=== PATIENT | female | born 1975 | race African-American/Black ===

== ENCOUNTER 2016-07-04 18:09 | Emergency (ER) | payer BC ==
[~2016-07-04] VITALS: Ht 165.1 cm; Wt 95.3 kg
[~2016-07-04 18:09] MED LIST: ALPR0.254 PO; ALPR1TAB6 PO; ATEN25TA PO; CETI-17 PO; DILT120C97 PO; DULO30CA2 PO; LEVO100T PO; LEVO137T3 PO; LEVO500T38 PO; LEVO75TA PO; LISI1TAB3 PO; LISI1TAB5 PO; MOME13HF IH; MOME13HF2 IH; POLY17PO29 PO; PROAIR HFA8.5 GM IH; VENTOLIN HFA18 GM IH
[2016-07-04 18:47] VITALS: BP 147/75
[2016-07-04] MEDS ORDERED: HYDR-971 PO (18:55)
[2016-07-04] MEDS ORDERED: AMOX1TAB61 PO (18:55)
--- NOTE | 2016-07-04 18:55 | PHYS DOC ---
Past Medical History Past Medical History: Anxiety, Asthma, Hypertension, Hypothyroid Additional Past Medical Histor: SVT Past Surgical History: Cholecystectomy, Hysterectomy, Other Additional Past Surgical Histo: THYROIDECTOMY Alcohol Use: Occasionally Drug Use: None Adult General Chief Complaint Chief Complaint: LACERATION/AVULSION HPI HPI Patient is a 40 year old female who presents emergency Department with complaint of a bite laceration to her upper lip that was caused by her cockatoo. Patient states that she was getting ready to feed him when he reached out in the mouth. She denies any illnesses for the burn. She denies any other injuries or concerns for self. She cannot remember the last time she received a tetanus shot. Review of Systems Review of Systems Constitutional: Denies fever or chills [] Eyes: Denies change in visual acuity, redness, or eye pain [] HENT: Denies nasal congestion or sore throat [] Respiratory: Denies cough or shortness of breath [] Cardiovascular: No additional information not addressed in HPI [] GI: Denies abdominal pain, nausea, vomiting, bloody stools or diarrhea [] : Denies dysuria or hematuria [] Musculoskeletal: Denies back pain or joint pain [] Integument: Denies rash or skin lesions [] Neurologic: Denies headache, focal weakness or sensory changes [] Endocrine: Denies polyuria or polydipsia [] Current Medications Current Medications Current Medications Medications (Trade) Dose Ordered Sig/Denise Start Time Stop Time Status Last Admin Dose Admin Diphtheria/ Tetanus/Acell Pertussis (Boostrix) 0.5 ml ONCE ONCE 07/04/16 19:00 07/04/16 19:01 DC 07/04/16 19:01 0.5 ML Lidocaine/Sodium Bicarbonate (Buffered Lidocaine 1%) 20 ml 1X ONCE 07/04/16 19:00 07/04/16 19:01 DC 07/04/16 19:00 20 ML Allergies Allergies Allergies Coded Allergies Type Severity Reaction Last Updated Verified No Known Drug Allergies 07/02/13 No Physical Exam Physical Exam Constitutional: Well developed, well nourished, no acute distress, non-toxic appearance. [] HENT: Normocephalic, atraumatic, bilateral external ears normal, oropharynx moist, no oral exudates, nose normal. [] Eyes: PERRLA, EOMI, conjunctiva normal, no discharge. [] Neck: Normal range of motion, no tenderness, supple, no stridor. [] Cardiovascular:Heart rate regular rhythm, no murmur [] Lungs & Thorax: Bilateral breath sounds clear to auscultation [] Abdomen: Bowel sounds normal, soft, no tenderness, no masses, no pulsatile masses. [] Skin: 2.5 cm, triangular laceration of the patient's right upper lip consistent with a bird beak penetration. This is not a through and through laceration. There is no damage to the gingival or buccal mucosa. There is no injury to patient's dentition. Back: No tenderness, no CVA tenderness. [] Extremities: No tenderness, no cyanosis, no clubbing, ROM intact, no edema. [] Neurologic: Alert and oriented X 3, normal motor function, normal sensory function, no focal deficits noted. [] Psychologic: Affect normal, judgement normal, mood normal. [] Current Patient Data Vital Signs Vital Signs Date Time Temp Pulse Resp B/P (MAP) Pulse Ox O2 Delivery O2 Flow Rate FiO2 07/04/16 18:47 99.1 95 18 97 Room Air 99.1 EKG EKG [] Radiology/Procedures Radiology/Procedures Procedure note: 2.5 cm, truncal shaped flap laceration above patient's upper lip was anesthetized with buffered 1% lidocaine. Wound was cleansed with Betadine solution and rinsed with copious amounts of saline. Wound was explored for foreign bodies. No foreign bodies were found. Wound margins were approximated utilizing 6-0 Prolene in a simple interrupted fashion of a single- layer closure for total of 5 stitches. Patient tolerated the procedure well. Course & Med Decision Making Course & Med Decision Making Pertinent Labs and Imaging studies reviewed. (See chart for details) [] Dragon Disclaimer Dragon Disclaimer This electronic medical record was generated, in whole or in part, using a voice recognition dictation system. Departure Departure Impression: Primary Impression: Animal bite of face Disposition: 01 HOME, SELF-CARE Condition: GOOD Referrals: BRIAN BARBER DO (PCP) Patient Instructions: Animal Bite, [id number] Additional Instructions: 1. Take the medication as prescribed. 2. Review the discharge instructions provided for self-care and reasons to return to the emergency department. 3. Stitches need to be removed in 5-7 days. 4. Follow-up with your primary care doctor next week for wound check and suture removal. Scripts Hydrocodone/Apap 5-325 (NORCO 5-325 TABLET) 1 Each Tablet 1 TAB PO PRN Q6HRS Y for PAIN for 10 Days, TAB 0 Refills Prov: SHAW COLLINS 07/04/16 Amoxicillin/Potassium Clav (AUGMENTIN 875-125 TABLET) 1 Each Tablet 1 TAB PO BID, #14 TAB Prov: SHAW COLLINS 07/04/16 Problem Qualifiers Primary Impression: Animal bite of face Encounter type: initial encounter Qualified Codes: S01.95XA - Open bite of unspecified part of head, initial encounter SHAW COLLINS July 04, 2016 18:55
[2016-07-04] MEDS ORDERED: DIPHTH,PERTUSS(ACELL),TET TOX 0.5 ML DISP.SYRIN. VAX IM ONE (19:00)
[2016-07-04] MEDS ORDERED: LIDOCAINE 1% / SOD BICARB 8.4% 20 ML VIAL. IJ ONE (19:00)
== END 2016-07-04 19:42 | disposition home or self-care (01) ==
LOC: ER 18:09
DX: S01.551A Open bite of lip, initial encounter (principal); J45.909 Unspecified asthma, uncomplicated; I10 Essential (primary) hypertension; E03.9 Hypothyroidism, unspecified; W61.01XA Bitten by parrot, initial encounter; Y93.89 Activity, other specified; Y99.8 Other external cause status; Y92.89 Other specified places as the place of occurrence of the external cause
CPT/HCPCS: 12011; 90471; 90715; 99283-25

== ENCOUNTER 2017-02-11 18:51 | Emergency (ER) | payer BC ==
[~2017-02-11] VITALS: Ht 167.6 cm; Wt 95.3 kg
[~2017-02-11 18:51] MED LIST changes: +AMOX1TAB61 PO; +DILT120C80 PO; -DILT120C97 PO; +HYDR-971 PO; -LEVO500T38 PO; +LEVO500T59 PO
--- NOTE | 2017-02-11 19:29 | PHYS DOC ---
Past Medical History Past Medical History: Anxiety, Asthma, Hypertension, Hypothyroid Additional Past Medical Histor: SVT Past Surgical History: Cholecystectomy, Hysterectomy, Other Additional Past Surgical Histo: THYROIDECTOMY Alcohol Use: Occasionally Drug Use: None Adult General Chief Complaint Chief Complaint: KNEE INJURY HPI HPI Patient is a 41 year old female presents to the emergency department status post fall. Patient states she was at the grocery store when she slipped and discharged in liquid. She states she fell onto her bilateral knees and struck her right elbow. She states her seeking evaluation. She does ambulate into the emergency department with a steady gait. Describing her fall and her injury she readily moves the right upper extremity. Review of Systems Review of Systems Constitutional: Denies fever or chills [] Eyes: Denies change in visual acuity, redness, or eye pain [] HENT: Denies nasal congestion or sore throat [] Respiratory: Denies cough or shortness of breath [] Cardiovascular: No additional information not addressed in HPI [] GI: Denies abdominal pain, nausea, vomiting, bloody stools or diarrhea [] : Denies dysuria or hematuria [] Musculoskeletal: Right elbow, bilateral knee pain Integument: Denies rash or skin lesions [] Neurologic: Denies headache, focal weakness or sensory changes [] Endocrine: Denies polyuria or polydipsia [] All other systems were reviewed and found to be within normal limits, except as documented in this note. Current Medications Current Medications Current Medications Medications (Trade) Dose Ordered Sig/Denise Start Time Stop Time Status Last Admin Dose Admin Ibuprofen (Motrin) 800 mg 1X ONCE 02/11/17 19:30 02/11/17 19:31 DC 02/11/17 19:37 800 MG Allergies Allergies Allergies Coded Allergies Type Severity Reaction Last Updated Verified No Known Drug Allergies 07/02/13 No Physical Exam Physical Exam Constitutional: Well developed, well nourished, no acute distress, non-toxic appearance. [] HENT: Normocephalic, atraumatic, bilateral external ears normal, oropharynx moist, no oral exudates, nose normal. [] Eyes: PERRLA, EOMI, conjunctiva normal, no discharge. [] Neck: Normal range of motion, no midline or paracervical tenderness in the cervical, thoracic, lumbar region., supple, no stridor. [] Cardiovascular:Heart rate regular rhythm, no murmur [] Lungs & Thorax: Bilateral breath sounds clear to auscultation [] Abdomen: Bowel sounds normal, soft, no tenderness, no masses, no pulsatile masses. [] Skin: Warm, dry, no erythema, no rash. [] Back: No tenderness, no CVA tenderness. [] Extremities: Atraumatic extremity exam. Right elbow, bilateral knees without swelling, without ecchymosis, without bony tenderness, without laxity on anterior drawer. Full range of motion of all extremities without difficulty and without apparent increase in pain. Neurologic: Alert and oriented X 3, normal motor function, normal sensory function, no focal deficits noted. [] Psychologic: Affect normal, judgement normal, mood normal. [] Current Patient Data Vital Signs Vital Signs Date Time Temp Pulse Resp B/P (MAP) Pulse Ox O2 Delivery O2 Flow Rate FiO2 02/11/17 19:33 98.1 88 20 95 Room Air 98.1 EKG EKG [] Radiology/Procedures Radiology/Procedures [] Course & Med Decision Making Course & Med Decision Making Pertinent Labs and Imaging studies reviewed. (See chart for details) Patient requested that her right elbow and bilateral knees be x-rayed. No Acute bony abnormalities [] Dragon Disclaimer Dragon Disclaimer This electronic medical record was generated, in whole or in part, using a voice recognition dictation system. Departure Departure Impression: Primary Impression: Fall Disposition: 01 HOME, SELF-CARE Condition: STABLE Referrals: DAWSON QUINTEROS MD (PCP) Patient Instructions: Contusion Scripts Ibuprofen (IBUPROFEN) 800 Mg Tablet 800 MG PO PRN Q6HRS Y for INFLAMMATION, #20 TAB Prov: BERNARDO MUÑOZ APRN 02/11/17 Problem Qualifiers Primary Impression: Fall Encounter type: initial encounter Qualified Codes: W19.XXXA - Unspecified fall, initial encounter BERNARDO MUÑOZ APRN Feb 11, 2017 19:29
[2017-02-11] MEDS ORDERED: IBUPROFEN 800 MG TABLET. PO ONE (19:30)
[2017-02-11 19:33] VITALS: BP 130/80
[2017-02-11] MEDS ORDERED: IBUP-1060 PO (20:11)
--- NOTE | 2017-02-12 07:41 | RAD ---
Indication: Pain after fall. Technique: 3 views of the right elbow are submitted for review. No comparison is available. Findings: There is no fracture or dislocation. There is no displacement of fat pads/joint effusion. There is no soft tissue swelling. Impression: Negative for fracture.
--- NOTE | 2017-02-12 07:43 | RAD ---
Indication: Pain after fall. Technique: 3 views of each knee are submitted for review. There is a comparison left knee from December 19, 2012. There is a comparison right knee from March 11, 2011. Findings: Mild osteoarthritis in the medial compartment and patellofemoral compartment of the right knee has increased from 2011. Mild osteoarthritis also greatest in the medial compartment involving the left knee has increased from 2012. There is no evidence of an acute fracture or dislocation. There is no joint effusion. Impression: Mild osteoarthritis in each knee has increased from priors. There is no evidence of an acute fracture or dislocation.
== END 2017-02-11 20:36 | disposition home or self-care (01) ==
LOC: ER 18:51
DX: M25.562 Pain in left knee (principal); M25.561 Pain in right knee; M25.521 Pain in right elbow; J45.909 Unspecified asthma, uncomplicated; I10 Essential (primary) hypertension; E03.9 Hypothyroidism, unspecified; W01.0XXA Fall on same level from slipping, tripping and stumbling without subsequent striking against object, initial encounter; Y93.89 Activity, other specified; Y99.8 Other external cause status; Y92.89 Other specified places as the place of occurrence of the external cause
CPT/HCPCS: 73080; 73562; 99284

== ENCOUNTER 2018-01-29 23:49 | Emergency (ER) | payer OTHER, BC ==
[~2018-01-29] VITALS: Ht 167.6 cm; Wt 95.3 kg
[~2018-01-29 23:49] MED LIST changes: -DILT120C80 PO; +DILT120C85 PO; +HYDR-3164 PO; -HYDR-971 PO; +IBUP-1060 PO
[2018-01-29 23:51] VITALS: BP 163/92
[2018-01-30 00:12] LABS: BILIRUBIN,URINE NEGATIVE (NEG); CLARITY,URINE CLOUDY; COLOR,URINE YELLOW; NITRITE,URINE POSITIVE (NEG); PROTEIN,URINE 100 mg/dL (NEG-TRACE)
[2018-01-30] MEDS ORDERED: PHENAZOPYRIDINE 200 MG TABLET. PO ONE (00:15)
[2018-01-30 00:19] LABS: BACTERIA,URINE MANY /HPF (0-FEW); RBC,URINE TNTC /HPF (0-2); SQUAMOUS EPITHELIAL CELL,UR FEW /LPF; WBC,URINE TNTC /HPF (0-4)
[2018-01-30] MEDS ORDERED: PHEN100T82 PO (00:37)
[2018-01-30] MEDS ORDERED: CEPH-264 PO (00:37)
--- NOTE | 2018-01-30 00:38 | PHYS DOC ---
Past Medical History Past Medical History: Anxiety, Asthma, Hypertension, Hypothyroid Additional Past Medical Histor: SVT Past Surgical History: Cholecystectomy, Hysterectomy, Other Additional Past Surgical Histo: THYROIDECTOMY Alcohol Use: Occasionally Drug Use: None Adult General Chief Complaint Chief Complaint: PAIN ON URINATION HPI HPI Patient is a 42 year old AA female who presents to the emergency Department today with complaints of increased urinary frequency, burning with urination, suprapubic pain after urination and concerns of urinary tract infection that started today. Patient denies any irregular vaginal discharge, abdominal pain, nausea, vomiting, diarrhea, or fever. Patient states that this feels like symptoms that she previously experienced during previous urinary tract infections. She states that her last UTI was over 6 months ago Review of Systems Review of Systems Constitutional: Denies fever or chills [] HENT: Denies nasal congestion or sore throat [] Respiratory: Denies cough or shortness of breath [] GI: Denies abdominal pain, nausea, vomiting, or diarrhea [] : Denies odor or hematuria; see history of present illness[] Musculoskeletal: Denies back pain Integument: Denies rash or skin lesions [] Neurologic: Denies headache, focal weakness or sensory changes [] All other systems were reviewed and found to be within normal limits, except as documented in this note. Current Medications Current Medications Current Medications Medications (Trade) Dose Ordered Sig/Denise Start Time Stop Time Status Last Admin Dose Admin Phenazopyridine HCl (Pyridium) 200 mg 1X ONCE 01/30/18 00:15 01/30/18 00:16 DC 01/30/18 00:13 200 MG Allergies Allergies Allergies Coded Allergies Type Severity Reaction Last Updated Verified No Known Drug Allergies 07/02/13 No Physical Exam Physical Exam Constitutional: Well developed, well nourished, no acute distress, non-toxic appearance. [] HENT: Normocephalic, atraumatic, bilateral external ears normal, nose normal. [] Eyes: conjunctiva normal, no discharge. [] Neck: Normal range of motion Cardiovascular:Heart rate regular rhythm, no murmur [] Lungs & Thorax: Bilateral breath sounds clear to auscultation [] Skin: Warm, dry, no erythema, no rash. [] Back: no CVA tenderness. [] Neurologic: Alert and oriented X 3, normal motor function, normal sensory function, no focal deficits noted. [] Psychologic: Affect normal, judgement normal, mood normal. [] Current Patient Data Vital Signs Vital Signs Date Time Temp Pulse Resp B/P (MAP) Pulse Ox O2 Delivery O2 Flow Rate FiO2 01/29/18 23:51 98.7 104 18 163/92 (115) 98 Room Air 98.7 Lab Values Laboratory Tests Test 01/29/18 23:50 01/30/18 00:07 Urine Collection Type Unknown Urine Color Yellow Urine Clarity Cloudy Urine pH 7.0 Urine Specific [place] 1.025 Urine Protein 100 mg/dL (NEG-TRACE) Urine Glucose (UA) 500 mg/dL (NEG) Urine Ketones (Stick) Negative mg/dL (NEG) Urine Blood Large (NEG) Urine Nitrite Positive (NEG) Urine Bilirubin Negative (NEG) Urine Urobilinogen Dipstick 1.0 mg/dL (0.2 mg/dL) Urine Leukocyte Esterase Large (NEG) Urine RBC Tntc /HPF (0-2) Urine WBC Tntc /HPF (0-4) Urine Squamous Epithelial Cells Few /LPF Urine Bacteria Many /HPF (0-FEW) Urine Mucus Slight /LPF POC Urine HCG, Qualitative Hcg negative (Negative) EKG EKG [] Radiology/Procedures Radiology/Procedures [] Course & Med Decision Making Course & Med Decision Making Pertinent Labs and Imaging studies reviewed. (See chart for details) dx: UTI Prescription for Keflex 500 mg by mouth 4 times a day 7 days. Increase clear fluids, avoid bladder irritants. Follow-up with primary care provider if symptoms persist. Return to emergency room if symptoms worsen. Patient verbalized an understanding of home care, medications, follow-up, and return to ED instructions and was in agreement with the plan of care. Staff Physician Addendum: I was working in the ER during the course of this patient's visit. I was available for consultation as needed, but I was not directly involved in the care of this patient. [] Dragon Disclaimer Dragon Disclaimer This electronic medical record was generated, in whole or in part, using a voice recognition dictation system. Departure Departure Impression: Primary Impression: UTI (urinary tract infection) Disposition: HOME, SELF-CARE Condition: STABLE Referrals: DAWSON QUINTEROS MD (PCP) Patient Instructions: Urinary Tract Infection, [id number] Additional Instructions: Fill prescription(s) and use as directed. Avoid bladder irritants such as caffeine, carbonation, and spicy foods. Increase clear fluids. Follow up with your primary care doctor if symptoms persist, return to the ER if symptoms worsen. Scripts Cephalexin (KEFLEX) 500 Mg Capsule 500 MG PO QID for 7 Days, #28 CAP 0 Refills Prov: WALTER SOLORZANO APRN 01/30/18 Phenazopyridine Hcl (PYRIDIUM) 100 Mg Tablet 100 MG PO TID PRN for PAIN for 7 Days, #21 TAB 0 Refills Prov: WALTER SOLORZANO APRN 01/30/18 Problem Qualifiers Primary Impression: UTI (urinary tract infection) Urinary tract infection type: site unspecified Hematuria presence: without hematuria Qualified Codes: N39.0 - Urinary tract infection, site not specified WALTER SOLORZANO APRN Jan 30, 2018 00:38 LEILA FORMAN MD Jan 30, 2018 01:14
== END 2018-01-30 00:45 | disposition home or self-care (01) ==
LOC: ER 23:49
DX: N39.0 Urinary tract infection, site not specified (principal); I10 Essential (primary) hypertension; E03.9 Hypothyroidism, unspecified; J45.909 Unspecified asthma, uncomplicated; Z90.710 Acquired absence of both cervix and uterus; Z90.49 Acquired absence of other specified parts of digestive tract
CPT/HCPCS: 81001; 81025; 87086; 99283

== ENCOUNTER 2019-01-08 09:50 | Emergency (ER) | payer BC ==
[~2019-01-08] VITALS: Ht 167.6 cm; Wt 95.3 kg
[~2019-01-08 09:50] MED LIST changes: +ALBU2.5V8 IH; +CEPH-264 PO; -DILT120C85 PO; +DILT120C99 PO; +LISI1TAB19 PO; +LISI1TAB23 PO; -LISI1TAB3 PO; -LISI1TAB5 PO; +PHEN100T82 PO; -PROAIR HFA8.5 GM IH
[2019-01-08 10:00] VITALS: BP 128/71
[2019-01-08] MEDS ORDERED: predniSONE 20 MG TABLET PO ONE (10:15)
--- NOTE | 2019-01-08 10:29 | PHYS DOC ---
Past Medical History Past Medical History: Anxiety, Asthma, Hypertension, Hypothyroid Additional Past Medical Histor: SVT (IBETH GRIFFITH APRN) Past Surgical History: Cholecystectomy, Hysterectomy, Other Additional Past Surgical Histo: THYROIDECTOMY (IBETH GRIFFITH APRN) Alcohol Use: Occasionally Drug Use: None (IBETH GRIFFITH APRN) Adult General Chief Complaint Chief Complaint: FLU SYMPTOM HPI HPI Patient is a 43 year old female with history of anxiety, asthma, hypertension, hypothyroidism, who presents to the ED today complaining of a productive cough with yellow sputum, sore throat, body aches, and intermittent episodes of 8 out of 10 generalize headache, symptoms for 1 week. Patient denies any fever. 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 She reports she's been using her breathing treatments with no relief (IBETH GRIFFITH APRN) Review of Systems Review of Systems Constitutional: Denies fever or chills [] Eyes: Denies change in visual acuity, redness, or eye pain [] HENT: Reports sore throat. Denies nasal congestion Respiratory: Reports cough, denies shortness of breath [] Cardiovascular: No additional information not addressed in HPI [] GI: Denies abdominal pain, nausea, vomiting, bloody stools or diarrhea [] : Denies dysuria or hematuria [] Musculoskeletal: Denies back pain or joint pain [] Integument: Denies rash or skin lesions [] Neurologic: Denies headache, focal weakness or sensory changes [] All other systems were reviewed and found to be within normal limits, except as documented in this note. (IBTEH GRIFFITH APRN) Current Medications Current Medications Current Medications Medications (Trade) Dose Ordered Sig/Denise Start Time Stop Time Status Last Admin Dose Admin Prednisone (Prednisone) 60 mg 1X ONCE 01/08/19 10:15 01/08/19 10:16 DC 01/08/19 10:15 60 MG (LEILA FORMAN MD) Allergies Allergies Allergies Coded Allergies Type Severity Reaction Last Updated Verified No Known Drug Allergies 07/02/13 No (LEILA FORMAN MD) Physical Exam Physical Exam Constitutional: Well developed, well nourished, no acute distress, non-toxic appearance. [] HENT: Normocephalic, atraumatic, bilateral external ears normal, oropharynx moist, no oral exudates, nose normal. [] Eyes: PERRLA, EOMI, conjunctiva normal, no discharge. [] Neck: Normal range of motion, no tenderness, supple, no stridor. [] Cardiovascular:Heart rate regular rhythm, no murmur [] Lungs & Thorax: Bilateral breath sounds clear to auscultation [] Abdomen: Bowel sounds normal, soft, no tenderness, no masses, no pulsatile masses. [] Skin: Warm, dry, no erythema, no rash. [] Back: No tenderness, no CVA tenderness. [] Extremities: No tenderness, no cyanosis, no clubbing, ROM intact, no edema. [] Neurologic: Alert and oriented X 3, normal motor function, normal sensory function, no focal deficits noted. [] Psychologic: Affect normal, judgement normal, mood normal. [] (IBETH GRIFFITH APRN) Current Patient Data Vital Signs Vital Signs Date Time Temp Pulse Resp B/P (MAP) Pulse Ox O2 Delivery O2 Flow Rate FiO2 01/08/19 10:00 98.9 121 16 128/71 (90) 96 Room Air 98.9 (LEILA FORMAN MD) EKG EKG [] (IBETH GRIFFITH APRN) Radiology/Procedures Radiology/Procedures []PROCEDURE: CHEST PA & LATERAL CHEST PA LATERAL History: Cough, congestion for one week, asthma Comparison: 04/10/2015 Findings: 2 views of the chest are submitted. There is no infiltrate, pneumothorax, or effusion. Pericardial cardiac silhouette is within normal limits in size. Impression: 1. There is no radiographic evidence of acute cardiopulmonary disease. Electronically signed by: Carlos Sultana MD (01/08/2019 10:28 AM) [id number] DICTATED and SIGNED BY: CARLOS SULTANA MD DATE: 01/08/19 1028 (IBETH GRIFFITH APRN) Course & Med Decision Making Course & Med Decision Making Pertinent Labs and Imaging studies reviewed. (See chart for details) This is a 43-year-old female patient presenting to the ED today complaining of a productive cough, sorethroat, body aches for one week. Patient asking for antibiotics. Patient is afebrile. Chest x-ray is negative. She did have a breathing treatment prior to coming to the ED, heart rate was around 116 arrival. Spoke to patient about antibiotics with viral illness. Informed patient she does not meet criteria for antibiotics treatment. Recommended bronchitis, breathing treatments and medications to help with the cough. Instructed to follow-up with the PCP in the course of next week. Provided return precautions and discharged in stable condition. (IBETH GRIFFITH APRN) Dragon Disclaimer Dragon Disclaimer This electronic medical record was generated, in whole or in part, using a voice recognition dictation system. (IBETH GRIFFITH APRN) Departure Departure Impression: Primary Impression: Acute bronchitis Disposition: HOME, SELF-CARE Condition: STABLE Referrals: BRIAN BARBER DO (PCP) Follow-up in one week Patient Instructions: Acute Bronchitis, [id number] Additional Instructions: You were evaluated in the emergency room with symptoms consistent of bronchitis. Your chest x-ray is negative for any acute findings. Continue doing breathing treatments at home. We started you on prednisone, ensure you complete it. Take the cough medicine as needed. Follow-up with your doctor in the next 1 week. Scripts Promethazine HCl/Codeine (Prometh-Codein 6.25-10 mg/5 ml) 5 Ml Syrup 5 ML PO PRN Q4-6HRS PRN for cough MDD 30 Milliliter(s), #100 ML 0 Refills Prov: IBETH GRIFFITH APRN 01/08/19 Prednisone (PREDNISONE) 20 Mg Tablet 3 TAB PO DAILY, #12 TAB Prov: IBETH GRIFFITH APRN 01/08/19 Albuterol Sulfate (Proair Hfa) 8.5 Gm Hfa.aer.ad 2 PUFF IH PRN Q4-6HRS PRN for wheezing for 21 Days, #1 INHALER 0 Refills Prov: IBETH GRIFFITH APRN 01/08/19 Problem Qualifiers Primary Impression: Acute bronchitis Bronchitis organism: unspecified organism Qualified Codes: J20.9 - Acute bronchitis, unspecified IBETH GRIFFITH APRN Jan 08, 2019 10:29 LEILA FORMAN MD Jan 08, 2019 12:24
[2019-01-08] MEDS ORDERED: PROM5SYR2 PO (10:44)
[2019-01-08] MEDS ORDERED: PRED20TA PO (10:44)
[2019-01-08] MEDS ORDERED: ALBU2.5V8 IH (10:44)
== END 2019-01-08 10:50 | disposition home or self-care (01) ==
LOC: ER 09:50
DX: J20.9 Acute bronchitis, unspecified (principal); I10 Essential (primary) hypertension; E03.9 Hypothyroidism, unspecified; J45.909 Unspecified asthma, uncomplicated
CPT/HCPCS: 71046; 87070; 87880; 99285; J7512

== ENCOUNTER 2019-09-04 03:52 | Emergency (ER) | payer BC ==
[~2019-09-04] VITALS: Ht 167.6 cm; Wt 100.0 kg
[~2019-09-04 03:52] MED LIST changes: +LEVO-101 PO; -LEVO100T PO; -LEVO75TA PO; +LEVO75TA90 PO; +PRED20TA PO; +PROM5SYR2 PO
[2019-09-04 04:25] LABS: BILIRUBIN,URINE NEGATIVE (NEG); CLARITY,URINE CLEAR; COLOR,URINE AMBER; NITRITE,URINE NEGATIVE (NEG); PROTEIN,URINE 30 mg/dL (NEG-TRACE); UROBILINOGEN,URINE 0.2 mg/dL (0.2 mg/dL)
[2019-09-04 04:32] LABS: BACTERIA,URINE MANY /HPF (0-FEW); RBC,URINE 0 /HPF (0-2); SQUAMOUS EPITHELIAL CELL,UR MOD /LPF
[2019-09-04] MEDS ORDERED: DICYCLOMINE 20 MG/2 ML VIAL. IM ONE (05:00)
[2019-09-04] MEDS ORDERED: IV NORMAL SALINE 1000ML BAG 1,000 ML IV ONE (05:00)
[2019-09-04 05:01] LABS: BASO # 0.1 x10^3/uL (0.0-0.2); BASO % 1 % (0-3); EOS # 0.1 x10^3/uL (0.0-0.7); EOS % 1 % (0-3); HEMATOCRIT 42.1 % (36.0-47.0); HEMOGLOBIN 14.1 g/dL (12.0-15.5); LYMPH # 1.5 x10^3/uL (1.0-4.8); LYMPH % 24 % (24-48); MEAN CORPUSCULAR HEMOGLOBIN 31 pg (25-35); MEAN CORPUSCULAR HGB CONC 34 g/dL (31-37); MEAN CORPUSCULAR VOLUME 94 fL (79-100); MONO # 0.7 x10^3/uL (0.0-1.1); MONO % 10 % (0-9); NEUT # 4.1 x10^3/uL (1.8-7.7); NEUT % 64 % (31-73); PLATELET COUNT 278 x10^3/uL (140-400); RED CELL DISTRIBUTION WIDTH 13.7 % (11.5-14.5); WHITE BLOOD COUNT 6.5 x10^3/uL (4.0-11.0)
--- NOTE | 2019-09-04 05:07 | PHYS DOC ---
Past Medical History Past Medical History: Anxiety, Asthma, Hypertension, Hypothyroid Additional Past Medical Histor: SVT Past Surgical History: Cholecystectomy, Hysterectomy, Other Additional Past Surgical Histo: THYROIDECTOMY Smoking Status: Never Smoker Alcohol Use: Occasionally Drug Use: None General Adult EDM: Chief Complaint: ABDOMINAL PAIN HPI: HPI: Patient is a 43 year old female who presents to the ED with a chief complaint of abdominal tenderness. Patient states that she has had the pain for the last 3 days and it is intermittent. Patient states that pain is worse after eating. Patient describes the pain as in the umbilical region. Patient states that she has had a cholecystectomy previously. 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 Patient states that she was diagnosed with IBS when she was 17 years old. Patient does have a history of diabetes, high blood pressure, hyper lipidemia. Patient denies vomiting but does complain of nausea and diarrhea. Review of Systems: Review of Systems: Constitutional: Denies fever or chills. [] Eyes: Denies change in visual acuity. [] HENT: Denies nasal congestion or sore throat. [] Respiratory: Denies cough or shortness of breath. [] Cardiovascular: Denies chest pain or edema. [] GI: Patient complains of diffuse abdominal tenderness, nausea and diarrhea [] : Denies dysuria. [] Neurologic: Denies headache, focal weakness or sensory changes. [] Heart Score: Risk Factors: Risk Factors: DM, Current or recent (<one month) smoker, HTN, HLP, family his tory of CAD, obesity. Risk Scores: Score 0 - 3: 2.5% MACE over next 6 weeks - Discharge Home Score 4 - 6: 20.3% MACE over next 6 weeks - Admit for Clinical Observation Score 7 - 10: 72.7% MACE over next 6 weeks - Early Invasive Strategies Current Medications: Current Medications Medications (Trade) Dose Ordered Sig/Denise Start Time Stop Time Status Last Admin Dose Admin Dicyclomine HCl (Bentyl) 20 mg 1X ONCE 09/04/19 05:00 09/04/19 05:01 DC Sodium Chloride 1,000 ml @ 1,000 mls/hr 1X ONCE 09/04/19 05:00 09/04/19 05:59 Allergies: Allergies: Allergies Coded Allergies Type Severity Reaction Last Updated Verified No Known Drug Allergies 07/02/13 No Physical Exam: PE: Constitutional: Well developed, well nourished, no acute distress, non-toxic appearance. [] HENT: Normocephalic, atraumatic Eyes: EOMI Neck: Normal range of motion, Supple Cardiovascular:Heart rate regular rhythm Lungs & Thorax: Bilateral breath sounds clear to auscultation [] Abdomen: Diffuse abdominal tenderness Extremities: No tenderness, ROM intact Neurologic: Alert and oriented X 3 Current Patient Data: Labs: Laboratory Tests Test 09/04/19 04:00 09/04/19 04:03 Urine Collection Type Unknown Urine Color Gabriela Urine Clarity Clear Urine pH 6.0 (<5.0-8.0) Urine Specific [place] >=1.030 (1.000-1.030) Urine Protein 30 mg/dL (NEG-TRACE) Urine Glucose (UA) Negative mg/dL (NEG) Urine Ketones (Stick) Negative mg/dL (NEG) Urine Blood Negative (NEG) Urine Nitrite Negative (NEG) Urine Bilirubin Negative (NEG) Urine Urobilinogen Dipstick 0.2 mg/dL (0.2 mg/dL) Urine Leukocyte Esterase Negative (NEG) Urine RBC 0 /HPF (0-2) Urine WBC 5-10 /HPF (0-4) Urine Squamous Epithelial Cells Mod /LPF Urine Bacteria Many /HPF (0-FEW) Urine Mucus Marked /LPF POC Urine HCG, Qualitative Hcg negative (Negative) EKG: EKG: [] Radiology/Procedures: Radiology/Procedures: [] Impression: CT ABD/PELVIS IMPRESSION: 1. No acute findings. 2. Colonic diverticulosis. 3. Cholecystectomy. Hysterectomy. Course & Med Decision Making: Course & Med Decision Making Pertinent Labs and Imaging studies reviewed. (See chart for details) Ordered labs, UA, urine , CT abdomen pelvis, IV fluids, Bentyl 20 mg IM Dragon Disclaimer: Dragon Disclaimer: This electronic medical record was generated, in whole or in part, using a voice recognition dictation system. Departure Departure Impression: Primary Impression: Abdominal pain Disposition: 01 HOME, SELF-CARE Condition: STABLE Referrals: BRIAN BARBER DO (PCP) PJ HOPKINS MD PLEASE CALL FOR APPOINTMENT Patient Instructions: Abdominal Pain, Diet and Irritable Bowel Syndrome, Irritable Bowel Syndrome Additional Instructions: Discussed results and plan of care with patient. Patient is instructed to follow up with PCP in one to 2 days. Appropriate discharge instructions given to patient to return to the ED or to seek immediate medical evaluation. Patient is instructed to return to the ED if symptoms worsen or if any concerns. Scripts Dicyclomine Hcl (DICYCLOMINE HCL) 20 Mg Tablet 1 TAB PO TID for CRAMPING, #30 TAB 1 Refill Prov: DONNA WEST DO 09/04/19 Justicifation of Admission Dx: Justifications for Admission: Justification of Admission Dx: No DONNA WEST DO Sep 04, 2019 05:07
[2019-09-04 05:11] LABS: CREATININE 1.1 mg/dL (0.6-1.0); POTASSIUM 3.3 mmol/L (3.5-5.1)
[2019-09-04 05:18] LABS: ALBUMIN 3.7 g/dL (3.4-5.0); ALBUMIN/GLOBULIN RATIO 0.9 (1.0-1.7); TOTAL BILIRUBIN 0.3 mg/dL (0.2-1.0); TOTAL PROTEIN 7.8 g/dL (6.4-8.2)
--- NOTE | 2019-09-04 05:49 | RAD ---
CT ABD PELV W/ IV CONTRST ONLY History: Reason: ABDOMINAL PAIN Comparison: None. Technique: After administration of intravenous contrast, helical CT of the abdomen and pelvis was performed from the lung bases through the ischial tuberosities. Coronal and sagittal reconstructions were obtained. 75 mL of Omnipaque 350 were used. One or more of the following dose reduction techniques were utilized: Automated exposure control (AEC), Adjustment of mA and/or kV according to patient size, Use of iterative reconstruction technique such as ASiR, CT scan done according to ALARA and image gently/image wisely Abdomen Findings: The visualized lung bases are clear. The liver, pancreas, spleen, and bilateral adrenal glands are normal. Cholecystectomy. Symmetric renal enhancement. There is no focal renal mass. There is no hydronephrosis. The visualized loops of small bowel are normal. Mild colonic diverticulosis. The visualized loops of large bowel are otherwise normal. There is no evidence of bowel obstruction. Appendix is normal. There is no free fluid. There is no mesenteric or retroperitoneal adenopathy. The abdominal aorta is normal in caliber. Pelvis Findings: Urinary bladder is decompressed. Hysterectomy. No pelvic free fluid. There is no pelvic or inguinal adenopathy. There is no acute bony abnormality. IMPRESSION: 1. No acute findings. 2. Colonic diverticulosis. 3. Cholecystectomy. Hysterectomy. Electronically signed by: Lefty Azevedo MD (09/04/2019 5:46 AM) [facility]
[2019-09-04 05:58] VITALS: BP 185/85
[2019-09-04] MEDS ORDERED: CONTRAST GIVEN. MC PRN (06:00)
[2019-09-04] MEDS ORDERED: IOHEXOL 300 MG/ML 100ML VIAL. IV ONE (06:00)
[2019-09-04] MEDS ORDERED: DICY20TA3 PO (06:00)
[2019-09-04] MEDS ORDERED: POTASSIUM CHLORIDE 20 MEQ TABLET.ER. PO ONE (06:30)
== END 2019-09-04 06:45 | disposition home or self-care (01) ==
LOC: ER 03:52
DX: R10.33 Periumbilical pain (principal); R19.7 Diarrhea, unspecified; F41.9 Anxiety disorder, unspecified; J45.909 Unspecified asthma, uncomplicated; I10 Essential (primary) hypertension; E03.9 Hypothyroidism, unspecified; Z90.49 Acquired absence of other specified parts of digestive tract; Z90.710 Acquired absence of both cervix and uterus; Z90.89 Acquired absence of other organs; Z79.899 Other long term (current) drug therapy
CPT/HCPCS: 36415; 74177; 80053; 81001; 81025; 83605; 83690; 85025; 87086; 96360; 96372; 99285; J0500; J7030; Q9967

== ENCOUNTER 2020-02-09 06:40 | Emergency (ER) | payer BC ==
[~2020-02-09] VITALS: Ht 167.6 cm; Wt 95.9 kg
[~2020-02-09 06:40] MED LIST changes: +DICY20TA3 PO; -LISI1TAB19 PO; +LISI1TAB37 PO
--- NOTE | 2020-02-09 07:09 | ED.ADGEN ---
Past Medical History Past Medical History: Anxiety, Asthma, Hypertension, Hypothyroid Additional Past Medical Histor: SVT and colitis Past Surgical History: Cholecystectomy, Hysterectomy, Other Additional Past Surgical Histo: THYROIDECTOMY Smoking Status: Former Smoker Alcohol Use: Occasionally Drug Use: None General Adult EDM: Chief Complaint: CHEST PAIN HPI: HPI: Patient is a 44-year-old female who arrives ambulatory to the emergency department complaining of chest pain for the past 2 days. Patient describes substernal nonradiating chest pain which has been present for the past 2 days. Patient states this pain is worsened with exertion. She does report a history of hypertension however she is never had any acute coronary intervention. The patient states she has not had any associated nausea or shortness of air. Furthermore she denies any history of diaphoresis, fever or cough. She is awake, alert and nontoxic appearing. Review of Systems: Review of Systems: Constitutional: Denies fever or chills. [] Eyes: Denies change in visual acuity. [] HENT: Denies nasal congestion or sore throat. [] Respiratory: Denies cough or shortness of breath. [] Cardiovascular: Reports chest pain. Denies edema. [] GI: Denies abdominal pain, nausea, vomiting, bloody stools or diarrhea. [] : Denies dysuria. [] Musculoskeletal: Denies back pain or joint pain. [] Integument: Denies rash. [] Neurologic: Denies headache, focal weakness or sensory changes. [] Endocrine: Denies polyuria or polydipsia. [] Lymphatic: Denies swollen glands. [] Psychiatric: Denies depression or anxiety. [] Current Medications: Current Medications Medications (Trade) Dose Ordered Sig/Denise Start Time Stop Time Status Last Admin Dose Admin Aspirin (Hortencia Aspirin) 325 mg 1X ONCE 02/09/20 07:15 02/09/20 07:16 DC 02/09/20 07:17 325 MG Allergies: Allergies: Allergies Coded Allergies Type Severity Reaction Last Updated Verified No Known Drug Allergies 07/02/13 No Physical Exam: PE: Constitutional: Well developed, well nourished, no acute distress, non-toxic appearance. [] HENT: Normocephalic, atraumatic, bilateral external ears normal, oropharynx moist, no oral exudates, nose normal. [] Eyes: PERRLA, EOMI, conjunctiva normal, no discharge. [] Neck: Normal range of motion, no tenderness, supple, no stridor. [] Cardiovascular:Heart rate regular rhythm, no murmur [] Lungs & Thorax: Bilateral breath sounds clear to auscultation [] Abdomen: Bowel sounds normal, soft, no tenderness, no masses, no pulsatile masses. [] Skin: Warm, dry, no erythema, no rash. [] Back: No tenderness, no CVA tenderness. [] Extremities: No tenderness, no cyanosis, no clubbing, ROM intact, no edema. [] Neurologic: Alert and oriented X 3, normal motor function, normal sensory function, no focal deficits noted. [] Psychologic: Affect normal, judgement normal, mood normal. [] Current Patient Data: Labs: Laboratory Tests Test 02/09/20 07:53 White Blood Count 7.5 x10^3/uL (4.0-11.0) Red Blood Count 4.24 x10^6/uL (3.50-5.40) Hemoglobin 13.2 g/dL (12.0-15.5) Hematocrit 39.0 % (36.0-47.0) Mean Corpuscular Volume 92 fL (79-100) Mean Corpuscular Hemoglobin 31 pg (25-35) Mean Corpuscular Hemoglobin Concent 34 g/dL (31-37) Red Cell Distribution Width 13.3 % (11.5-14.5) Platelet Count 211 x10^3/uL (140-400) Neutrophils (%) (Auto) 66 % (31-73) Lymphocytes (%) (Auto) 23 % (24-48) L Monocytes (%) (Auto) 7 % (0-9) Eosinophils (%) (Auto) 3 % (0-3) Basophils (%) (Auto) 1 % (0-3) Neutrophils # (Auto) 4.9 x10^3/uL (1.8-7.7) Lymphocytes # (Auto) 1.7 x10^3/uL (1.0-4.8) Monocytes # (Auto) 0.5 x10^3/uL (0.0-1.1) Eosinophils # (Auto) 0.3 x10^3/uL (0.0-0.7) Basophils # (Auto) 0.1 x10^3/uL (0.0-0.2) Sodium Level 138 mmol/L (136-145) Potassium Level 3.4 mmol/L (3.5-5.1) L Chloride Level 102 mmol/L (98-107) Carbon Dioxide Level 26 mmol/L (21-32) Anion Gap 10 (6-14) Blood Urea Nitrogen 9 mg/dL (7-20) Creatinine 0.9 mg/dL (0.6-1.0) Estimated GFR (Cockcroft-Gault) 81.6 BUN/Creatinine Ratio 10 (6-20) Glucose Level 97 mg/dL (70-99) Calcium Level 8.9 mg/dL (8.5-10.1) Total Bilirubin 0.3 mg/dL (0.2-1.0) Aspartate Amino Transferase (AST) 18 U/L (15-37) Alanine Aminotransferase (ALT) 27 U/L (14-59) Alkaline Phosphatase 73 U/L (46-116) Troponin I Quantitative < 0.017 ng/mL (0.000-0.055) FV-Xhb-S-Type Natriuretic Peptide 16 pg/mL (0-124) Total Protein 6.7 g/dL (6.4-8.2) Albumin 3.4 g/dL (3.4-5.0) Albumin/Globulin Ratio 1.0 (1.0-1.7) Lipase 89 U/L (73-393) Laboratory Tests 02/09/20 07:53 Laboratory Tests 02/09/20 07:53 Vital Signs: Vital Signs Date Time Temp Pulse Resp B/P (MAP) Pulse Ox O2 Delivery O2 Flow Rate FiO2 02/09/20 08:05 92 16 141/79 (99) 100 Room Air 02/09/20 06:49 98.0 98.0 EKG: EKG: EKG was obtained at 0652 hrs. This reveals a normal sinus rhythm with a ventricular rate of 94 bpm. Intervals are normal and there are no ST/T wave changes to denote ischemia. [] Heart Score: HEART Score for Chest Pain: HEART Score for Chest Pain Response (Comments) Value History Slighlty/Non-Suspicious 0 ECG Normal 0 Age >45 - < 65 1 Risk Factors 1 or 2 Risk Factors 1 Troponin < Normal Limit 0 Total 2 Risk Factors: Risk Factors: DM, Current or recent (<one month) smoker, HTN, HLP, family history of CAD, obesity. Risk Scores: Score 0 - 3: 2.5% MACE over next 6 weeks - Discharge Home Score 4 - 6: 20.3% MACE over next 6 weeks - Admit for Clinical Observation Score 7 - 10: 72.7% MACE over next 6 weeks - Early Invasive Strategies Radiology/Procedures: Radiology/Procedures: [] Impression: [facility] [address] [place] [address] IMAGING REPORT Signed PATIENT: OLINDA JETT SACCOUNT: [id number] : 1975 LOCATION: ER AGE: 44 SEX: F EXAM STATUS: REG ER ORD. PHYSICIAN: MEG BIGGS DO REASON: Pain PROCEDURE: PORTABLE CHEST 1V AP chest x-ray HISTORY: Chest pain. COMPARISON: Chest x-ray January 08, 2019. FINDINGS: Heart size normal. Mediastinal silhouette is normal. No pneumothorax, pulmonary opacities or pleural effusions. Bones are unremarkable. IMPRESSION: No acute process. Electronically signed by: Linad Funes MD (02/09/2020 7:28 AM) [facility] DICTATED and SIGNED BY: LINDA FUNES MD DATE: 02/09/20 [id number] 0 Course & Med Decision Making: Course & Med Decision Making Pertinent Labs and Imaging studies reviewed. (See chart for details) The patient is awake, alert and in no acute distress. While the patient does have intermittent episodes of this pain, she does state this been ongoing for 2 days and as such I do not believe this is a cardiac process. Rather I do believe it is likely related to having had an EGD 2 days previously. I did o ffer the patient admission which she politely declined. She has however states she will return should her pain worsen. The patient is currently resting comfortably with family who is present. She is nontoxic-appearing and stable for discharge [place] Disclaimer: [place] Disclaimer: This electronic medical record was generated, in whole or in part, using a voice recognition dictation system. Departure Departure Impression: Primary Impression: Chest pain Additional Impression: Atypical chest pain Disposition: 01 DC HOME SELF CARE/HOMELESS Condition: STABLE Referrals: BRIAN BARBER DO (PCP) Patient Instructions: Chest Pain (Nonspecific) Problem Qualifiers MEG BIGGS DO Feb 09, 2020 07:09
[2020-02-09] MEDS: ASPIRIN 325 MG TABLET PO ONE (07:17)
--- NOTE | 2020-02-09 07:31 | RAD ---
AP chest x-ray HISTORY: Chest pain. COMPARISON: Chest x-ray January 08, 2019. FINDINGS: Heart size normal. Mediastinal silhouette is normal. No pneumothorax, pulmonary opacities or pleural effusions. Bones are unremarkable. IMPRESSION: No acute process. Electronically signed by: Ronan Funes MD (02/09/2020 7:28 AM) [facility]
[2020-02-09 08:05] LABS: BASO # 0.1 x10^3/uL (0.0-0.2); BASO % 1 % (0-3); EOS # 0.3 x10^3/uL (0.0-0.7); EOS % 3 % (0-3); HEMOGLOBIN 13.2 g/dL (12.0-15.5); LYMPH # 1.7 x10^3/uL (1.0-4.8); LYMPH % 23 % (24-48); MEAN CORPUSCULAR HEMOGLOBIN 31 pg (25-35); MEAN CORPUSCULAR HGB CONC 34 g/dL (31-37); MEAN CORPUSCULAR VOLUME 92 fL (79-100); MONO # 0.5 x10^3/uL (0.0-1.1); MONO % 7 % (0-9); NEUT # 4.9 x10^3/uL (1.8-7.7); NEUT % 66 % (31-73); PLATELET COUNT 211 x10^3/uL (140-400); RED BLOOD COUNT 4.24 x10^6/uL (3.50-5.40); RED CELL DISTRIBUTION WIDTH 13.3 % (11.5-14.5); WHITE BLOOD COUNT 7.5 x10^3/uL (4.0-11.0)
[2020-02-09 08:15] LABS: CALCIUM 8.9 mg/dL (8.5-10.1); CREATININE 0.9 mg/dL (0.6-1.0); GFR 81.6; POTASSIUM 3.4 mmol/L (3.5-5.1)
[2020-02-09 08:21] LABS: ALBUMIN 3.4 g/dL (3.4-5.0); TOTAL BILIRUBIN 0.3 mg/dL (0.2-1.0); TOTAL PROTEIN 6.7 g/dL (6.4-8.2)
[2020-02-09 09:05] VITALS: BP 138/74
== END 2020-02-09 09:54 | disposition home or self-care (01) ==
LOC: ER 06:40
DX: R07.89 Other chest pain (principal); F41.9 Anxiety disorder, unspecified; I10 Essential (primary) hypertension; J45.909 Unspecified asthma, uncomplicated; E03.9 Hypothyroidism, unspecified; Z90.49 Acquired absence of other specified parts of digestive tract; Z90.710 Acquired absence of both cervix and uterus; Z90.89 Acquired absence of other organs; Z87.891 Personal history of nicotine dependence
CPT/HCPCS: 36415; 71045; 80053; 83690; 83880; 84484; 85025; 93005; 99285